=== PATIENT | female | born 1995 | race Caucasian/White ===

== ENCOUNTER 2018-06-21 13:48 | Emergency (ER) | payer OTHER ==
[2018-06-21 13:56] VITALS: RESP 18
--- NOTE | 2018-06-21 14:17 | ED ---
General Adult HPI - General Chief complaint: Head Injury Stated complaint: Head injury-[facility] Time Seen by Provider: 06/21/18 13:59 Source: patient, RN notes reviewed Mode of arrival: wheelchair Limitations: no limitations - History of Present Illness Initial comments: Patient is a 23-year-old female who presents the emergency department with complaints of a head injury that happened around 10:30 AM today. She reports that she was moving a manikin pole and it fell and hit her on her right head over the eyebrow area. She does not think she lost consciousness because she did not fall from standing; however, everything "went black." She has been dizzy since and has had some nausea off and on, but is not currently nauseous. She has had some fluids and eaten a granola bar without vomiting. She has pain over the right side of her head and has taken Tylenol. She reports that she is up to date on tetanus vaccination. Denies anticoagulant use. She was sent here from [facility] for a CT scan. Patient denies any recent neck pain, fever, chills, shortness of breath, chest pain, back pain, abdominal pain, vomiting, numbness or tingling, vertigo, visual changes, or any other complaints. - Related Data Previous Rx's Medication Instructions Recorded Ibuprofen [Motrin] 600 mg PO Q6HR PRN #20 tab 04/02/14 Allergies Allergy/AdvReac Type Severity Reaction Status Date / Time No Known Allergies Allergy Verified 06/21/18 13:56 Review of Systems ROS Statement: Those systems with pertinent positive or pertinent negative responses have been documented in the HPI. ROS Other: All systems not noted in ROS Statement are negative. Past Medical History Additional Past Medical History / Comment(s): polycystic ovaries History of Any Multi-Drug Resistant Organisms: None Reported Past Surgical History: No Surgical Hx Reported Past Psychological History: ADD/ADHD, Anxiety Smoking Status: Current every day smoker Past Alcohol Use History: Occasional Past Drug Use History: None Reported General Exam Limitations: no limitations General appearance: alert, in no apparent distress Head exam: Present: other (3x2 cm contusion over the right forehead/eyebrow area that is swollen.) Eye exam: Present: normal appearance, PERRL, EOMI Pupils: Present: normal accommodation ENT exam: Present: normal oropharynx, normal external ear exam Neck exam: Present: normal inspection, full ROM, other (No midline spinal tenderness with palpation.) Respiratory exam: Present: normal lung sounds bilaterally Cardiovascular Exam: Present: regular rate, normal rhythm GI/Abdominal exam: Present: soft, normal bowel sounds Extremities exam: Present: full ROM Neurological exam: Present: alert, oriented X3, CN II-XII intact, normal gait Psychiatric exam: Present: normal affect, normal mood Skin exam: Present: warm, dry Course Vital Signs 06/21/18 13:54 Temperature 98.2 F Pulse Rate 84 Respiratory 18 Rate Blood Pressure 119/71 O2 Sat by Pulse 99 Oximetry Medical Decision Making - Medical Decision Making Patient is a 23-year-old female who presents the emergency department with a contusion on the right side of her head near the eyebrow area. The area is painful, swollen and she has been dizzy with occasional nausea. Head CT was negative. Patient has a concussion. Case discussed in detail with attending physician Dr. Burrell. Disposition Clinical Impression: Concussion without loss of consciousness Disposition: HOME SELF-CARE Condition: Good Instructions: Concussion (ED) Additional Instructions: Follow-up with PCP in 2 days. Follow-up with [facility] tomorrow. Limit physical activity or any activity that increases your concussion symptoms. Return to emergency department if symptoms worsen or any other concerns. Is patient prescribed a controlled substance at d/c from ED?: No Referrals: Destin Kurtz MD [Primary Care Provider] - 1-2 days Time of Disposition: 15:28
--- NOTE | 2018-06-21 15:00 | CT ---
EXAMINATION TYPE: CT brain wo con DATE OF EXAM: 06/21/2018 COMPARISON: 06/29/2011 INDICATION: Right supraorbital injury, +LOC, dizziness. DLP: 919.2 mGycm, Automated exposure control for dose reduction was used. CONTRAST: None CT of the brain is performed utilizing 3 mm thick sections through the posterior fossa and 3 mm thick sections through the remaining calvarium. Study is performed within 24 hours of arrival to the hosp ital. No abnormal hyperdensity is present to suggest an acute intracranial hemorrhage. No mass lesion is evident. No acute infarcts are evident. Ventricles and sulci are appropriate for the patient age. Paranasal sinuses and mastoid air cells within the [id number] are clear. No supraorbital fracture is evident. IMPRESSIONS: 1. No acute intracranial abnormality
[2018-06-21 15:32] VITALS: BP 108/75; PULSE 67; TEMP 98.1
== END 2018-06-21 15:30 | disposition home or self-care (01) ==
LOC: EC 13:48
DX: S06.0X0A Concussion without loss of consciousness, initial encounter (principal); F17.200 Nicotine dependence, unspecified, uncomplicated; W20.8XXA Other cause of strike by thrown, projected or falling object, initial encounter; Y92.69 Other specified industrial and construction area as the place of occurrence of the external cause; Y99.0 Civilian activity done for income or pay
CPT/HCPCS: 70450; 99283

== ENCOUNTER → 2018-08-08 | Outpatient (CLI) | payer OTHER | LOC: LABWHC1 14:37 | PROVIDERS: ATTEND Psychiatry & Neurology Neurology | DX: R42 Dizziness and giddiness (principal) | CPT/HCPCS: 36415; 82565; 84520 ==

== ENCOUNTER → 2018-08-16 | Outpatient (CLI) | payer OTHER ==
--- NOTE | 2018-08-16 08:02 | MR ---
EXAMINATION TYPE: MR brain wo/w con DATE OF EXAM: 08/16/2018 COMPARISON: CT brain 06/21/2018 HISTORY: Contusion of scalp / Dizziness, right supraorbital injury, loss of consciousness CONTRAST: Performed utilizing 7 mL intravenous MultiHance gadolinium contrast. TECHNIQUE: Multiplanar, multiecho imaging on a 3.0 Rebecca magnet is performed through the brain. Stud y is performed within 24 hours of arrival to the hospital. The craniovertebral junction is normal. The pituitary is normal. Diffusion-weighted imaging is performed. No abnormal hyperintensity is present to suggest an acute i ntracranial infarct or acute ischemic change. Signal through the brain appears normal. Gradient imaging is performed. No subtle findings to suggest diffuse axonal injury or tiny petechial hemorrhages are evident. Postcontrast imaging is performed. No suspicious enhancement is evident. Ventricles and sulci are appropriate for the patient age. IMPRESSIONS: 1. Normal pre and postcontrast MRI brain.
== END | disposition home or self-care (01) ==
LOC: RADMRIMAIN 06:09
PROVIDERS: ATTEND Psychiatry & Neurology Neurology
DX: S00.03XD Contusion of scalp, subsequent encounter (principal)
CPT/HCPCS: 70553; A9585

== ENCOUNTER 2021-06-19 10:42 | Outpatient (CLI) | payer OTHER ==
[2021-06-19 11:15] VITALS: BP 116/65; PULSE 98; RESP 18; TEMP 98.1
--- NOTE | 2021-06-24 10:56 | P.MSEPDOC ---
Presenting Problems - Arrival Data Date of Arrival on Unit: 06/19/21 Time of Arrival on Unit: 10:42 Mode of Transport: Ambulatory - Complaint OB-Reason for Admission/Chief Complaint: Dizziness Medical History - Information : 2 Para: 1 Term: 1 : 0 Abortions: Spontaneous or Elective: 0 Number of Living Children: 1 - Gestational Age Gestational Age by TAMY (wks/days): 21 Weeks and 0 Days Review of Systems - Review of Systems Constitutional: No problems Breast: No problems ENT: No problems Cardiovascular: No problems Respiratory: No problems Gastrointestinal: No problems Genitourinary: No problems Musculoskeletal: No problems Neurological: No problems Skin: No problems Comment: no current dizziness - feeling of dizziness like she might pass out 1 hour ago. Vital Signs - Temperature Temperature: 98.1 F Temperature Source: Oral - Pulse Right Pulse Oximetery Pulse Rate: 98 Pulse Assessment Method: Pulse Oximetry - Respirations Respiratory Rate: 18 Oxygen Delivery Method: Room Air O2 Sat by Pulse Oximetry: 98 - Blood Pressure Right Arm Blood Pressure: 116/65 Blood Pressure Mean: 82 Blood Pressure Source: Automatic Cuff Physician Notification - Physician Notified Physician Notified Date: 06/19/21 Physician Notified Time: 11:05 Physician: Janie Patel Maternal Triage Index - Maternal Triage Index Presenting for scheduled procedure w/no complaint: No - Stat/Priority 1 Stat Priority 1: No - Urgent/Priority 2 Urgent Priority 2: No - Prompt/Priority 3 Prompt Priority 3: No - Non-Urgent/Priority 4 Non-Urgent Priority 4: Yes Criteria Met for Priority 4: vagal response 1 hour prior to arrival where she thought she may pass out. Disposition - Disposition OB Disposition: Discharge to home Discharge Date: 06/19/21 Discharge Time: 11:06 I agree with the RN Medical Screening Exam: Yes Case reviewed; plan agreed upon as documented in EMR&OBIX.: Yes Diagnosis: SYNCOPE AND COLLAPSE
== END 2021-06-19 11:06 | disposition home or self-care (01) ==
LOC: FBPOP 10:42
PROVIDERS: ATTEND Obstetrics & Gynecology
DX: O26.892 Other specified pregnancy related conditions, second trimester (principal); R55 Syncope and collapse; Z3A.21 21 weeks gestation of pregnancy
CPT/HCPCS: 99213

== ENCOUNTER 2021-09-28 17:04 | Inpatient (IN) | payer OTHER ==
[2021-09-28 17:43] VITALS: RESP 16
[2021-09-28] MEDS: BETAMET ACET-BETAMETH SOD PHOS 6 MG/ML MDV IM SCH (18:31)
--- NOTE | 2021-09-28 20:58 | P.HPOB ---
History of Present Illness H&P Date: 09/28/21 Chief Complaint: Oligohydramnios This is a 26 y.o. female, 2, para 1, with an estimated date of confinement of 10/30/2021, estimated gestational age of 35-3/7 weeks, who presented for scheduled ultrasound in the office today. Ultrasound showed fluid level of 4.7-4.9 cm. Baby estimated weight was 6#9oz (75-90%). She denies any leakage of fluid. Advised of need to proceed toward delivery due to oligohydramnios. Risks and benefits were discussed in detail with the patient and her partner. Will admit for Celestone x 2 doses 12 hours apart with continuous monitoring. She is aware that baby will need to go to level I nursery. labs: Hepatitis B surface antigen-neg RPR-NR Rubella-immune Blood type-A+ Antibody screen-neg HIV-NR Hemoglobin-12.6 Random glucose-76 1 hr. GTT-80 GBS-pending, just taken today. OB Hx: . History of 1 vaginal delivery at term. 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 Social Hx: Single. 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 Review of Systems Constitutional: Denies chills, Denies fever Eyes: denies blurred vision, denies pain Ears, nose, mouth and throat: Denies headache, Denies sore throat Cardiovascular: Denies chest pain, Denies shortness of breath Respiratory: Denies cough Gastrointestinal: Reports abdominal pain (irregular contractions) Genitourinary: Reports pelvic pain, Reports Musculoskeletal: Reports low back pain Integumentary: Denies pruritus, Denies rash Neurological: Denies numbness, Denies weakness Psychiatric: Denies anxiety, Denies depression Past Medical History Additional Past Medical History / Comment(s): PCOS History of Any Multi-Drug Resistant Organisms: MRSA Date of last positivie culture/infection: 2016 MDRO Source:: left buttock Past Surgical History: No Surgical Hx Reported Past Anesthesia/Blood Transfusion Reactions: No Reported Reaction Past Psychological History: ADD/ADHD, Anxiety Smoking Status: Never smoker Past Alcohol Use History: Occasional Past Drug Use History: None Reported - Past Family History Father Family Medical History: No Reported History Medications and Allergies Home Medications Medication Instructions Recorded Confirmed Type Pnv No.95/Ferrous Fum/Folic AC 1 each PO DAILY 06/19/21 09/28/21 History [ Multivitamin Tablet] Allergies Allergy/AdvReac Type Severity Reaction Status Date / Time No Known Allergies Allergy Verified 09/28/21 17:33 Exam Osteopathic Statement: *. No significant issues noted on an osteopathic structural exam other than those noted in the History and Physical/Consult. Vital Signs Temp Pulse Resp BP Pulse Ox 09/28/21 19:49 97.4 F L 85 16 115/63 09/28/21 17:35 98.2 F 81 16 124/77 98 Intake and Output 09/28/21 09/28/21 09/28/21 06:59 14:59 22:59 Other: Weight 78.925 kg HEENT: within normal limits Heart: regular rate and rhythm Lungs: clear to auscultation bilaterally Abdomen: , non-tender Cervix: 1 cm/60%/-2 heart tones: 130's, reactive, category 1, no decelerations Contractions: irregular Extremities: neg. Jd's Assessment and Plan (1) 35 weeks gestation of Current Visit: Yes Status: Acute Code(s): Z3A.35 - 35 WEEKS GESTATION OF SNOMED Code(s): 20714016 (2) Oligohydramnios Current Visit: Yes Status: Acute Code(s): O41.00X0 - OLIGOHYDRAMNIOS, UNSP TRIMESTER, NOT APPLICABLE OR UNSP SNOMED Code(s): 42767212 Plan: Admit for Celestone for lung maturity followed by oxytocin induction of labor. Risks and benefits are discussed in detail with patient and her partner.
[2021-09-29] MEDS ORDERED: OXYTOCIN 30 UNITS/500 ML NS 30 UNIT in SALINE 1 500ML.BAG IV SCH ×2 (05:28→20:57)
[2021-09-29] MEDS ORDERED: LIDOCAINE 1% (10MG/ML) FOR IV START INTRADERMA PRN (05:28)
[2021-09-29] MEDS ORDERED: LIDOCAINE 1% (PF) 10 MG/ML (30 ML SDV) SQ PRN (05:28)
[2021-09-29] MEDS ORDERED: OXYTOCIN 10 UNIT/ML 1 ML VIAL IM PRN (05:28)
[2021-09-29] MEDS ORDERED: CARBOPROST TROMETHAMINE 250 MCG/ML 1 ML AMP IM PRN (05:28)
[2021-09-29] MEDS ORDERED: METHYLERGONOVINE 0.2 MG/ML 1 ML AMP IM PRN (05:28)
[2021-09-29] MEDS ORDERED: AMPICILLIN 2,000 MG in SODIUM CHLORIDE 0.9% 100 ML IVPB STA (05:28)
[2021-09-29] MEDS ORDERED: TERBUTALINE 1 MG/ML VIAL SQ PRN (05:28)
[2021-09-29] MEDS: LACTATED RINGERS 1,000 ML IV SCH ×2 (06:01→13:33)
[2021-09-29] MEDS: BETAMET ACET-BETAMETH SOD PHOS 6 MG/ML MDV IM SCH (06:01)
[2021-09-29 06:37] LABS: Basophils % (A) 0 %; Eosinophils % (A) 0 %; HCT 34.1 % (34.0-46.0); HGB 11.3 gm/dL (11.4-16.0); Lymphocytes # (A) 1.1 k/uL (1.0-4.8); Lymphocytes % (A) 9 %; MCH 32.8 pg (25.0-35.0); MCHC 33.2 g/dL (31.0-37.0); MCV 98.8 fL (80.0-100.0); Mean Platelet Volume 10.1; Monocytes # (A) 0.2 k/uL (0-1.0); Monocytes % (A) 2 %; Neutrophils # (A) 11.1 k/uL (1.3-7.7); Neutrophils % (A) 89 %; Platelet Count 126 k/uL (150-450); RBC 3.45 m/uL (3.80-5.40); RDW 13.3 % (11.5-15.5); WBC 12.4 k/uL (3.8-10.6)
[2021-09-29] MEDS ORDERED: BUTORPHANOL 1 MG/ML 1 ML VIAL IV PRN (07:58)
[2021-09-29] MEDS: AMPICILLIN 1,000 MG in SODIUM CHLORIDE 0.9% 50 ML IVPB SCH ×3 (09:55→18:01)
[2021-09-29] MEDS ORDERED: ROPIVACAINE 5MG/ML 20ML VIAL ONE (13:08)
[2021-09-29] MEDS ORDERED: PHENYLEPHRINE-0.9% NACL SYG 1,000 MCG/10 ML SYRINGE ONE (13:08)
[2021-09-29] MEDS ORDERED: SODIUM CHLORIDE 0.9% 100 ML BAG ONE (13:08)
[2021-09-29] MEDS ORDERED: fentaNYL (PF) 50 MCG/ML 5 ML AMP ONE (13:08)
--- NOTE | 2021-09-29 19:28 | P.PROBDLV ---
Vaginal Delivery Note - . Vaginal Delivery Note: [facility]. Oxytocin induction of labor was started this morning. Artificial rupture membranes was carried out this morning at 1-1/2 cm. Clear fluid was noted. She progressed to approximately 3 cm and had an epidural. She then continued to progress to complete dilation. After reaching complete, she pushed for a few pushes and 's head came to a crown. At this point the 's heart rate went down to the 60s and therefore perineum was anesthetized with 1% lidocaine and a small episiotomy was cut. With one remaining push, the infant head delivered across the perineum followed by the anterior shoulder. Nose and mouth were bulb suctioned. With one further push, the remainder the infant easily delivered and was placed on mother's abdomen. After the cord was allowed to finish pulsating, the cord was clamped and cut. was taken to warmer for evaluation. A viable male infant was noted with scores of 8 at 1 minute and 9 at 5 minutes. weight was 6 pounds 11.8 ounces. Level I nursery staff was present for delivery and did transport baby to the level I nursery for observation. Placenta delivered shortly after delivery, intact, with a three- vessel cord. Uterus initially contracted well after oxytocin was given and uterine massage was carried out. Her bladder was also drained with a catheter. A gloved hand was placed within the endometrial cavity and a few pieces of membranes and tissue were obtained and removed manually. Uterus still continued to stay firm and minimal bleeding was noted. Inspection of the perineum revealed a midline episiotomy with no further extension. This area was anesthetized with 1% lidocaine and then sutured with 3-0 and 2-0 Vicryl suture in the usual multilayer fashion. Estimated blood loss is approximately 150 mL's. Mother is in stable condition.
[2021-09-29] MEDS ORDERED: BENZOCAINE/MENTHOL SPRAY 1 GM/SPRAY AEROSOL TOPICAL PRN (20:57)
[2021-09-29] MEDS ORDERED: diphenhydrAMINE 50 MG/ML 1 ML VIAL IVP PRN ×2 (20:57)
[2021-09-29] MEDS ORDERED: diphenhydrAMINE 50 MG CAP PO PRN (20:57)
[2021-09-29] MEDS ORDERED: LANOLIN CREAM 5 GM TUBE TOPICAL PRN (20:57)
[2021-09-29] MEDS ORDERED: ACETAMINOPHEN TAB 325 MG TAB PO PRN (20:57)
[2021-09-29] MEDS ORDERED: ZOLPIDEM 5 MG TAB PO PRN (20:57)
[2021-09-29] MEDS ORDERED: SIMETHICONE 80 MG CHEWABLE PO PRN (20:57)
[2021-09-29] MEDS ORDERED: HYDROCORTISONE 2.5% RECTAL CREAM 30 GM TUBE RECTAL PRN (20:57)
[2021-09-29] MEDS ORDERED: diphenhydrAMINE 25 MG CAP PO PRN (20:57)
[2021-09-29] MEDS: SENNOSIDES-DOCUSATE SODIUM 1 EACH TAB PO SCH (23:21)
[2021-09-30] MEDS: IBUPROFEN 600 MG TAB PO PRN ×2 (01:00→08:00)
[2021-09-30] MEDS: SENNOSIDES-DOCUSATE SODIUM 1 EACH TAB PO SCH (08:00)
[2021-09-30 08:02] LABS: Basophils % (A) 0 %; Eosinophils % (A) 0 %; HCT 34.8 % (34.0-46.0); HGB 11.1 gm/dL (11.4-16.0); Lymphocytes # (A) 1.5 k/uL (1.0-4.8); Lymphocytes % (A) 8 %; MCH 31.8 pg (25.0-35.0); MCHC 31.8 g/dL (31.0-37.0); MCV 100.1 fL (80.0-100.0); Macrocytosis Slight; Mean Platelet Volume 10.1; Monocytes # (A) 0.6 k/uL (0-1.0); Monocytes % (A) 3 %; Neutrophils # (A) 16.8 k/uL (1.3-7.7); Neutrophils % (A) 88 %; Platelet Count 140 k/uL (150-450); RBC 3.48 m/uL (3.80-5.40); RDW 13.9 % (11.5-15.5); WBC 19.1 k/uL (3.8-10.6)
--- NOTE | 2021-09-30 08:34 | P.PNOBGVD ---
Subjective - Subjective Principal diagnosis: Status post vaginal delivery day #1 Interval history: Patient is doing well. Lochia is decreasing. Her pain is fairly well controlled with ibuprofen. Her baby is in level I nursery and doing well. She is pumping her breast milk without difficulty. Patient reports: Reports appetite normal, Reports voiding normally, Reports pain well controlled, Reports ambulating normally : doing well, other (In level I nursery due to prematurity) Objective - Latest Vital Signs Latest vital signs: Vital Signs Temp Pulse Resp BP 09/30/21 00:00 98.0 F 80 16 110/65 09/29/21 21:13 96.1 F L 93 16 109/69 09/29/21 20:43 75 16 103/69 09/29/21 20:13 96.8 F L 74 16 103/63 09/29/21 19:58 85 16 109/66 09/29/21 19:43 96.2 F L 86 16 105/60 09/29/21 19:28 86 16 101/55 09/29/21 19:13 97.8 F 80 16 112/60 Intake and Output 09/29/21 09/30/21 09/30/21 22:59 06:59 14:59 Output Total 440 Balance -440 Output: Urine 200 Straight 200 Estimated Blood Loss 240 Other: # Voids 1 2 - Exam Extremities: Present: normal. Absent: tenderness Abdomen: Present: normal appearance, soft. Absent: distention, tenderness Uterus: Present: normal, firm. Absent: tenderness - Labs Labs: Abnormal Lab Results - Last 24 Hours (Table) 09/30/21 Range/Units 07:22 WBC 19.1 H (3.8-10.6) k/uL RBC 3.48 L (3.80-5.40) m/uL Hgb 11.1 L (11.4-16.0) gm/dL MCV 100.1 H (80.0-100.0) fL Plt Count 140 L (150-450) k/uL Neutrophils # 16.8 H (1.3-7.7) k/uL Assessment and Plan Assessment: Status post vaginal delivery day #1 (1) 35 weeks gestation of Current Visit: Yes Status: Acute Code(s): Z3A.35 - 35 WEEKS GESTATION OF SNOMED Code(s): 79877485 (2) Oligohydramnios Current Visit: Yes Status: Acute Code(s): O41.00X0 - OLIGOHYDRAMNIOS, UNSP TRIMESTER, NOT APPLICABLE OR UNSP SNOMED Code(s): 95872953 Plan: Continue with care today. Anticipate discharge home tomorrow.
[2021-09-30 08:59] VITALS: BP 106/61; PULSE 91; TEMP 98.3
[2021-09-30] MEDS ORDERED: PRENATAL VIT-IRON-FOLIC ACID 1 EACH CAP PO SCH (09:00)
--- NOTE | 2021-09-30 10:47 | P.DS ---
Providers Date of admission: 09/28/21 17:04 Expected date of discharge: 09/30/21 Attending physician: Janie Patel Primary care physician: Stated None - Discharge Diagnosis(es) (1) 35 weeks gestation of Current Visit: Yes Status: Acute (2) Oligohydramnios Current Visit: Yes Status: Acute Hospital Course: This is a 26 y.o. female who presented for Celestone x2 followed by induction of labor due to oligohydramnios. She delivered vaginally a viable male infant on09/29/2021. He did go to level 1 nursery due to prematurity but is doing well. She is requesting to go home today since she lives close to the hospital. Impression is S/P vaginal delivery day #1. Will give prescriptions for Ibuprofen and breast pump. Advised to call the office with any concerns. Follow up in 6 weeks for visit. Procedures: Oxytocin induction of labor Spontaneous vaginal delivery viable male on 09/29/2021 Patient Condition at Discharge: Stable Plan - Discharge Summary New Discharge Prescriptions: New Ibuprofen [Motrin] 600 mg PO Q6HR PRN #60 tab PRN Reason: Mild Pain (Scale 1 To 3) Continue Pnv No.95/Ferrous Fum/Folic AC [ Multivitamin Tablet] 1 each PO DAILY Discharge Medication List Pnv No.95/Ferrous Fum/Folic AC [ Multivitamin Tablet] 1 each PO DAILY 06/19/21 [History] Ibuprofen [Motrin] 600 mg PO Q6HR PRN #60 tab 09/30/21 [Rx] Follow up Appointment(s)/Referral(s): Janie Paetl DO [Doctor of Osteopathic Medicine] - 11/09/21 3:30 pm Activity/Diet/Wound Care/Special Instructions: Post instructions Discharge Disposition: HOME SELF-CARE
== END 2021-09-30 14:15 | disposition home or self-care (01) | DRG 807 ==
LOC: 4FBP 17:04
PROVIDERS: ADMIT Obstetrics & Gynecology; ATTEND Obstetrics & Gynecology
PROC: 10E0XZZ Delivery of Products of Conception, External Approach (ICD-10-PCS; principal; 2021-09-29)
PROC: 3E033VJ Introduction of Other Hormone into Peripheral Vein, Percutaneous Approach (ICD-10-PCS; 2021-09-29)
PROC: 10907ZC Drainage of Amniotic Fluid, Therapeutic from Products of Conception, Via Natural or Artificial Opening (ICD-10-PCS; 2021-09-29)
PROC: 0W8NXZZ Division of Female Perineum, External Approach (ICD-10-PCS; 2021-09-29)
PROC: 4A0HXCZ Measurement of Products of Conception, Cardiac Rate, External Approach (ICD-10-PCS; 2021-09-29)
DX: O41.03X0 Oligohydramnios, third trimester, not applicable or unspecified (principal); Z37.0 Single live birth; F41.9 Anxiety disorder, unspecified; O99.284 Endocrine, nutritional and metabolic diseases complicating childbirth; E28.2 Polycystic ovarian syndrome; F90.9 Attention-deficit hyperactivity disorder, unspecified type; O99.344 Other mental disorders complicating childbirth; Z3A.35 35 weeks gestation of pregnancy
CPT/HCPCS: 85025; 86850; 86900; 86901

== ENCOUNTER → 2022-11-30 | Outpatient (CLI) | payer BC ==
--- NOTE | 2022-12-18 02:55 | CE ---
Event Monitor STUDY PERFORMED: Event monitor. FINDINGS: The patient was monitored for 14 days. The baseline rhythm appeared to be sinus mechanism. The patient did have multiple episodes of sinus tachycardia with heart rate between 110 to 120 beats per minute. No significant sinus pause or sinus arrest. No atrial fibrillation or atrial flutter noted. CONCLUSION: This is a normal 14-day event monitor for the patient. MMJAVIER / RIANNAN: [id number] / MTDD
== END | disposition home or self-care (01) ==
LOC: RADECHMAIN 11:58
PROVIDERS: ATTEND Family Medicine
DX: R00.0 Tachycardia, unspecified (principal)
CPT/HCPCS: 93270

== ENCOUNTER 2023-07-07 06:00 | Inpatient (IN) | payer BC ==
[2023-07-07] MEDS ORDERED: METHYLERGONOVINE 0.2 MG/ML 1 ML AMP IM PRN (06:30)
[2023-07-07] MEDS ORDERED: miSOPROStoL 200 MCG TAB PO PRN (06:30)
[2023-07-07] MEDS ORDERED: TRANEXAMIC 1,000 MG/100ML-NACL 1,000 MG in EMPTY BAG 1 BAG IV PRN (06:30)
[2023-07-07] MEDS ORDERED: CARBOPROST TROMETHAMINE 250 MCG/ML 1 ML AMP IM PRN (06:30)
[2023-07-07] MEDS ORDERED: LIDOCAINE 0.5% (PF) 5 MG/ML (50 ML SDV) SQ PRN (06:30)
[2023-07-07] MEDS ORDERED: OXYTOCIN 10 UNIT/ML 1 ML VIAL IM PRN (06:30)
[2023-07-07] MEDS ORDERED: TERBUTALINE 1 MG/ML VIAL SQ PRN (06:30)
[2023-07-07 06:49] LABS: Basophils % (A) 0 %; Eosinophils # (A) 0.1 k/uL (0-0.7); Eosinophils % (A) 1 %; HCT 31.1 % (34.0-46.0); HGB 10.5 gm/dL (11.4-16.0); Lymphocytes # (A) 2.2 k/uL (1.0-4.8); Lymphocytes % (A) 22 %; MCH 30.6 pg (25.0-35.0); MCHC 33.6 g/dL (31.0-37.0); MCV 91.1 fL (80.0-100.0); Mean Platelet Volume 11.4; Monocytes # (A) 0.4 k/uL (0-1.0); Monocytes % (A) 4 %; Neutrophils # (A) 7.3 k/uL (1.3-7.7); Neutrophils % (A) 73 %; Platelet Count 133 k/uL (150-450); RBC 3.42 m/uL (3.80-5.40); RDW 14.9 % (11.5-15.5); WBC 10.1 k/uL (3.8-10.6)
[2023-07-07] MEDS: OXYTOCIN 30 UNITS/500 ML NS 30 UNIT in SALINE 1 500ML.BAG IV SCH ×2 (07:00→17:52)
[2023-07-07] MEDS: LACTATED RINGERS 1,000 ML IV SCH (07:00)
[2023-07-07] MEDS ORDERED: NALBUPHINE 10 MG/ML (10 ML MDV) IV PRN (09:08)
--- NOTE | 2023-07-07 09:08 | P.HPOB ---
History of Present Illness H&P Date: 07/07/23 Chief Complaint: 39-0/7 weeks, elective induction The patient is a 28-year-old 3 para 08/22/2001 admitted at 39-0/7 weeks by good dating parameters. She is admitted for elective induction with all signs reassuring, category 1 heart rate tracing. Her has been entirely uncomplicated and group B strep status is negative. She does have a history of 1 previous delivery for oligohydramnios prompting nearly delivery. Obstetrical history: 3 para 08/22/2001 with 1 term delivery and 1 35 week delivery secondary to oligohydramnios, both normal spontaneous vaginal deliveries. Current statistics are listed in history present illness. EDC of 07/14/2023 was established by last menstrual period. And confirmed by 9 week ultrasound. Laboratory workup demonstrates a blood type of A+ with a negative antibody screen. Rubella status is immune. Remainder of laboratory workup was within normal limits. One hour Glucola is normal and group B strep status is negative. Gynecologic history: Unremarkable with no history of any infections to include STDs. Review of Systems Review of systems is confined to history of present illness. Past Medical History Past Medical History: No Reported History Additional Past Medical History / Comment(s): PCOS History of Any Multi-Drug Resistant Organisms: MRSA Date of last positivie culture/infection: 2016 MDRO Source:: left buttock Past Surgical History: No Surgical Hx Reported Past Anesthesia/Blood Transfusion Reactions: No Reported Reaction Past Psychological History: ADD/ADHD, Anxiety Smoking Status: Never smoker Past Alcohol Use History: Occasional Past Drug Use History: None Reported - Past Family History Father Family Medical History: No Reported History Medications and Allergies Home Medications Medication Instructions Recorded Confirmed Type Pnv No.95/Ferrous Fum/Folic AC 1 each PO DAILY 06/19/21 07/07/23 History [ Multivitamin Tablet] Allergies Allergy/AdvReac Type Severity Reaction Status Date / Time No Known Allergies Allergy Verified 07/07/23 06:29 Exam Vital Signs Temp Pulse Resp BP Pulse Ox 07/07/23 07:55 96.9 F L 112 H 16 102/64 97 Intake and Output 07/06/23 07/07/23 07/07/23 22:59 06:59 14:59 Other: Weight 79.379 kg 79.379 kg Results Result Diagrams: 07/07/23 06:39 Abnormal Lab Results - Last 24 Hours (Table) 07/07/23 Range/Units 06:39 RBC 3.42 L (3.80-5.40) m/uL Hgb 10.5 L (11.4-16.0) gm/dL Hct 31.1 L (34.0-46.0) % Plt Count 133 L (150-450) k/uL Assessment and Plan (1) Term Current Visit: Yes Status: Acute Code(s): Z34.90 - ENCNTR FOR SUPRVSN OF NORMAL , UNSP, UNSP TRIMESTER SNOMED Code(s): 75580111 Plan: The patient is admitted for elective induction of labor with all signs reassu ring. She has had Pitocin started and undergone artificial rupture of membranes for clear fluid. She will have close maternal and surveillance and expectant management will be practiced. She is a good candidate for either IV or epidural analgesia, whichever she may choose.
[2023-07-07] MEDS ORDERED: fentaNYL (PF) 50 MCG/ML 5 ML AMP ONE (10:40)
[2023-07-07] MEDS ORDERED: ROPIVACAINE 5 MG/ML 30 ML VIAL ONE (10:40)
[2023-07-07] MEDS ORDERED: SODIUM CHLORIDE 0.9% 250 ML BAG ONE (10:40)
[2023-07-07] MEDS ORDERED: HYDROcodone/APAP 5-325MG 1 EACH TAB PO PRN (15:21)
[2023-07-07] MEDS ORDERED: diphenhydrAMINE 50 MG CAP PO PRN (15:21)
[2023-07-07] MEDS ORDERED: ACETAMINOPHEN TAB 325 MG TAB PO PRN (15:21)
[2023-07-07] MEDS ORDERED: BENZOCAINE/MENTHOL SPRAY 1 GM/SPRAY AEROSOL TOPICAL PRN (15:21)
[2023-07-07] MEDS ORDERED: HYDROCORTISONE 2.5% RECTAL CREAM 30 GM TUBE RECTAL PRN (15:21)
[2023-07-07] MEDS ORDERED: SIMETHICONE 80 MG CHEWABLE PO PRN (15:21)
[2023-07-07] MEDS ORDERED: HYDROcodone/APAP 7.5-325MG 1 EACH TAB PO PRN (15:21)
[2023-07-07] MEDS ORDERED: ZOLPIDEM 5 MG TAB PO PRN (15:21)
[2023-07-07] MEDS ORDERED: LANOLIN CREAM 5 GM TUBE TOPICAL PRN (15:21)
[2023-07-07] MEDS ORDERED: diphenhydrAMINE 50 MG/ML 1 ML VIAL IVP PRN ×2 (15:21)
[2023-07-07] MEDS ORDERED: diphenhydrAMINE 25 MG CAP PO PRN (15:21)
--- NOTE | 2023-07-07 15:26 | P.PROBDLV ---
Vaginal Delivery Note - . Vaginal Delivery Note: The patient is a 28-year-old 3 para 1102 admitted at 39-0/7 weeks by good dating parameters. She is admitted for elective induction with all signs reassuring with a category 1 heart rate tracing. Her has been entirely uncomplicated and group B strep status is negative. On labor and delivery, she had Pitocin augmentation started followed by artificial rupture membranes for clear fluid. She made progress to the active phase of labor and had an epidural catheter placed for analgesia. She continued to make steady progress into the afternoon and ultimately progressed to anterior lip at which time with 1 good push she was able to progress to complete and then over the course of the next 2-3 contractions pushed to a normal spontaneous vaginal delivery of a viable 8 lbs. 12 oz. baby girl with Apgars of 9 at 1 minute and 9 at 5 minutes delivered in the direct occiput anterior position. The placenta was delivered spontaneously, intact, and grossly normal with a grossly normal centrally inserted three-vessel cord. There was a second-degree midline perineal laceration likely in the site of a previous second-degree episiotomy which was repaired in standard fashion using 3-0 chromic catgut without difficulty. Estimated blood loss for the case was approximately 250 mL. There were no complications. Instrument and needle counts were correct however 1 sponge is unaccounted for. Vaginal examination was performed and it is absolute ly not in the vaginal cavity and likely wrapped up the patient's bedding. Both mother and infant are resting comfortably in recovery.
[2023-07-07] MEDS: SENNOSIDES-DOCUSATE SODIUM 1 EACH TAB PO SCH (20:10)
[2023-07-08] MEDS: IBUPROFEN 600 MG TAB PO PRN (04:34)
[2023-07-08 04:52] VITALS: RESP 16
[2023-07-08 08:16] VITALS: BP 111/74; PULSE 79; TEMP 97.8
[2023-07-08 08:30] LABS: Basophils % (A) 0 %; Eosinophils % (A) 0 %; HCT 32.6 % (34.0-46.0); HGB 10.9 gm/dL (11.4-16.0); Hypochromasia Slight; Lymphocytes # (A) 2.3 k/uL (1.0-4.8); Lymphocytes % (A) 19 %; MCH 30.7 pg (25.0-35.0); MCHC 33.5 g/dL (31.0-37.0); MCV 91.5 fL (80.0-100.0); Mean Platelet Volume 10.6; Monocytes # (A) 0.5 k/uL (0-1.0); Monocytes % (A) 4 %; Neutrophils # (A) 9.6 k/uL (1.3-7.7); Neutrophils % (A) 76 %; Platelet Count 165 k/uL (150-450); RBC 3.56 m/uL (3.80-5.40); RDW 14.6 % (11.5-15.5); WBC 12.5 k/uL (3.8-10.6)
--- NOTE | 2023-07-08 12:22 | P.DS ---
Providers Date of admission: 07/07/23 06:20 Expected date of discharge: 07/08/23 Attending physician: Odell Figueredo Primary care physician: Stated None - Discharge Diagnosis(es) (1) Term Current Visit: Yes Status: Acute (2) Normal spontaneous vaginal delivery Current Visit: Yes Status: Acute Hospital Course: The patient is a 28-year-old 3 para 1102 admitted at 39-0/7 weeks by good dating parameters. She is admitted for elective induction with all signs reassuring. Her was uncomplicated and group B strep status is negative. She had one delivery by induction secondary to oligohydramnios. On labor and delivery, she had Pitocin started and underwent artificial rupture of membranes for clear fluid. She made progress to the active phase and had an epidural catheter placed for analgesia. She progressed to anterior lip and then pushed past the lip and fairly quickly thereafter to a normal spontaneous vaginal delivery of a viable 8 lbs. 12 oz. baby girl with Apgars of 8 at 1 minute and 9 at 5 minutes. Her course was unremarkable vital signs or any stable and her temperature was afebrile throughout. She was deemed stable for discharge on day #1 was discharged home to follow-up in the office in 6 weeks' time routinely. Discharge instructions included calling for any significantly increased bleeding or foul-smelling lochia, significantly increased fever or abdominal pain, perineal complaints, breast complaints, or anything also concerned her. She was additionally instructed to have nothing in the vagina for at least 6 weeks time to include intercourse. She understood her instructions and agrees follow up as noted above. Discharge medications included continued vitamins as she has opted to breast-feed. She was otherwise to use [id number] analgesic pain medications as needed. Maternal blood type is A+ and rubella status is immune. Procedures: #1. Pitocin induction #2. Artificial rupture of membranes 3. Epidural analgesia #4. Normal spontaneous vaginal delivery #5. Repair of perineal laceration Patient Condition at Discharge: Stable Plan - Discharge Summary New Discharge Prescriptions: No Action Pnv No.95/Ferrous Fum/Folic AC [ Multivitamin Tablet] 1 each PO DAILY Discharge Medication List Pnv No.95/Ferrous Fum/Folic AC [ Multivitamin Tablet] 1 each PO DAILY 06/19/21 [History] Follow up Appointment(s)/Referral(s): Odell Figueredo MD [STAFF PHYSICIAN] - 6 Weeks Discharge Disposition: HOME SELF-CARE
== END 2023-07-08 15:15 | disposition home or self-care (01) | DRG 807 ==
LOC: 4FBP 06:20
PROVIDERS: ADMIT Obstetrics & Gynecology; ATTEND Obstetrics & Gynecology
PROC: 10E0XZZ Delivery of Products of Conception, External Approach (ICD-10-PCS; principal; 2023-07-07)
PROC: 0KQM0ZZ Repair Perineum Muscle, Open Approach (ICD-10-PCS; 2023-07-07)
PROC: 3E033VJ Introduction of Other Hormone into Peripheral Vein, Percutaneous Approach (ICD-10-PCS; 2023-07-07)
PROC: 10907ZC Drainage of Amniotic Fluid, Therapeutic from Products of Conception, Via Natural or Artificial Opening (ICD-10-PCS; 2023-07-07)
DX: O99.284 Endocrine, nutritional and metabolic diseases complicating childbirth (principal); Z37.0 Single live birth; O09.213 Supervision of pregnancy with history of pre-term labor, third trimester; O70.1 Second degree perineal laceration during delivery; Z3A.39 39 weeks gestation of pregnancy; Z86.14 Personal history of Methicillin resistant Staphylococcus aureus infection; E28.2 Polycystic ovarian syndrome
CPT/HCPCS: 85025; 86850; 86900; 86901

== ENCOUNTER → 2023-09-13 | Outpatient (CLI) | payer BC ==
--- NOTE | 2023-09-13 17:53 | CA ---
Transthoracic Echo Report Name: Judy Paz Age: 28 Gender: F : 1995 Exam Date: 09/13/2023 13:24 Exam Location: [facility] Ht (in): 65 Wt (lb): 155 Ordering Physician: Bertrand Goss DO Attending/Referring Phys: Nonstaff, Physician [employer] Generating Powerplant Mechanic Krystina Fox RDCS Procedure CPT: Indications: R00.0 TACHYCARDIA, UNSPECIFIED Cardiac Hx: Technical Quality: Good Contrast 1: Total Dose (mL): Contrast 2: Total Dose (mL): MEASUREMENTS (Male / Female) Normal Values 2D ECHO LV Diastolic Diameter PLAX 4.5 cm 4.2 - 5.9 / 3.9 - 5.3 cm LV Systolic Diameter PLAX 3.1 cm IVS Diastolic Thickness 0.9 cm 0.6 - 1.0 / 0.6 - 0.9 cm LVPW Diastolic Thickness 0.8 cm 0.6 - 1.0 / 0.6 - 0.9 cm LV Relative Wall Thickness 0.4 RV Internal Dim ED PLAX 2.8 cm LA Systolic Diameter LX 3.1 cm 3.0 - 4.0 / 2.7 - 3.8 cm LV Diastolic Volume MOD 4C 89.4 cm??? LV Systolic Volume MOD 4C 35.7 cm??? LV Ejection Fraction MOD 4C 60.1 % LV Cardiac Index MOD 4C 1812.3 cm???/min???m??? LV Diastolic Length 4C 7.7 cm LV Systolic Length 4C 6.3 cm LV Diastolic Volume MOD 2C 94.3 cm??? LV Systolic Volume MOD 2C 39.6 cm??? LV Ejection Fraction MOD 2C 58.0 % LV Cardiac Index MOD 2C 1845.9 cm???/min???m??? LV Diastolic Length 2C 8.3 cm LV Systolic Length 2C 6.7 cm LA Volume 39.9 cm??? 18 - 58 / 22 - 52 cm??? LA Volume Index 22.1 cm???/m??? 16 - 28 cm???/m??? M-MODE Aortic Root Diameter MM 2.8 cm MV E Point Septal Separation 0.3 cm AV Cusp Separation MM 2.4 cm DOPPLER AV Peak Velocity 110.3 cm/s AV Peak Gradient 4.9 mmHg MV Area PHT 4.3 cm??? Mitral E Point Velocity 85.3 cm/s Mitral A Point Velocity 31.9 cm/s Mitral E to A Ratio 2.7 MV Deceleration Time 176.8 ms MV E' Velocity 11.1 cm/s Mitral E to MV E' Ratio 7.7 TR Peak Velocity 176.1 cm/s TR Peak Gradient 12.4 mmHg Right Ventricular Systolic Press 16.7 mmHg FINDINGS Left Ventricle Left ventricular ejection fraction is estimated at 50 %. Left ventricular cavity size normal. Left ventricular wall thickness normal. Right Ventricle Normal right ventricular size. Right ventricular systolic pressure within normal limits. Right Atrium Normal right atrial size. Left Atrium Normal left atrial size. Mitral Valve Structurally normal mitral valve. Trace to mild mitral regurgitation. Aortic Valve Trileaflet aortic valve. No aortic valve stenosis or regurgitation. Tricuspid Valve Structurally normal tricuspid valve. Mild tricuspid regurgitation. Pulmonic Valve Structurally normal pulmonic valve. Mild pulmonic regurgitation. Pericardium No pericardial effusion. Aorta Normal size aortic root and proximal ascending aorta. CONCLUSIONS Low normal LV systolic function. The EF is 50% Previewed by: Dr. Mehdi Butterfield MD (Electronically Signed) Final Date: 13 September 2023 17:51
== END | disposition home or self-care (01) ==
LOC: RADECHMAIN 13:22
PROVIDERS: ATTEND Family Medicine
DX: R00.0 Tachycardia, unspecified (principal)
CPT/HCPCS: 93306